=== PATIENT | male | born 1960 | race Caucasian/White ===

== ENCOUNTER 2019-05-04 18:10 | Emergency (ER) | payer MEDICAID ==
[2019-05-05 08:00] VITALS: BP 98/60
== END 2019-05-05 08:26 | disposition home or self-care (01) ==
LOC: ED 18:23
DX: F10.220 Alcohol dependence with intoxication, uncomplicated (principal); R41.82 Altered mental status, unspecified
CPT/HCPCS: 36415; 80053; 80307; 85025; 85610; 85730; 86850; 86900; 93005; 96360; 99284; J7030

== ENCOUNTER 2019-05-05 11:31 | Emergency (ER) | payer MEDICAID ==
[~2019-05-05] VITALS: Ht 185.4 cm; Wt 77.3 kg
--- NOTE | 2019-05-05 11:38 | NUR ---
BREAK RN: PT MELANIE PAYAN AFTER SOMEONE FOUND HIM ON [address] AT THE [employer] [facility]. "MY BODY FEELS LIKE IT'S GOING TO GIVE OUT, LIKE PARALYSIS WHEN I WALK. IT FEELS LIKE I'M GOING TO HAVE A HEART ATTACK. TOTAL SHORTNESS OF BREATH." PT WAS D/C'D FROM ER THIS AM. STATES HE DRANK A HALF A PINT OF VODKA AFTER BEING DISCHARGED. NADN. NO SOB NOTED. PT SPEAKING IN FULL SENTENCES WITHOUT TROUBLE. PT ASKS IF HIS DAUGHTER KNOWS WHERE HE IS. PT LAYING ON [employer]. CALL LIGHT IN REACH.
--- NOTE | 2019-05-05 11:48 | NUR ---
REPORT FROM JUAN LAKHANI AND JUAN SANTORO. ASSUMED CARE OF PATIENT AT THIS TIME.
[2019-05-05] MEDS ORDERED: POTASSIUM CHLORIDE 20 MEQ TAB.ER.PRT ONE (11:52)
[2019-05-05] MEDS ORDERED: POTASSIUM CHLORIDE 40 MEQ in SODIUM CHLORIDE 0.9% 500 ML IV ONE (12:00)
[2019-05-05] MEDS ORDERED: POTASSIUM CHLORIDE 20 MEQ TAB.ER.PRT PO ONE (12:00)
--- NOTE | 2019-05-05 12:04 | NUR ---
MEDICATION REQUEST SENT TO PHARMACY.
[2019-05-05 12:17] LABS: ALBUMIN 3.6 g/dL (3.4-5.0); ANION GAP 15 mmol/L (5-15); CALCIUM 7.5 mg/dL (8.5-10.1); CHLORIDE 98 mmol/L (98-107); CREATININE 1.02 mg/dL (0.7-1.3)
[2019-05-05 12:21] LABS: TROPONIN I < 0.015 ng/mL (0.000-0.045)
--- NOTE | 2019-05-05 12:43 | NUR ---
LAB RESULTS BACK, AWARE, PATIENT TO HAVE CTA FOR +D-DIMER, AWAITING CT. PATIENT LAYING IN [place]. UPDATED ON POC.
--- NOTE | 2019-05-05 13:20 | NUR ---
RECEIVED BEDSIDE REPORT FROM JUAN WEEKS
[2019-05-05] MEDS ORDERED: OMNIPAQUE 350 MG/ML, 100ML BOTTLE ONE (13:57)
--- NOTE | 2019-05-05 14:18 | NUR ---
PT GAVE PERMISSION TO SPEAK WITH HIS DAUGHTER INES
--- NOTE | 2019-05-05 14:23 | NUR ---
CALL DAUGHTER, INES, WHEN READY FOR D/C. [phone]
[2019-05-05 14:30] VITALS: BP 116/68
--- NOTE | 2019-05-05 14:54 | NUR ---
THIS RN SPOKE WITH DR. ROLO CABRAL TO D/C PATIENT WITH GETTING ONLY 1/2 BAG OF POTASSIUM. PATIENT ABLE TO AMBULAT. DAUGHTER, INES CALLED, TO COME COLLAR RUNNER PATIENT. PATIENT IV DC WITH TIP INTACT. PATIENT AOX4 NOTED WITH SLIGHT TREMORS.
== END 2019-05-05 15:45 | disposition home or self-care (01) ==
LOC: ED 13:57
DX: F10.229 Alcohol dependence with intoxication, unspecified (principal); E87.6 Hypokalemia; R06.00 Dyspnea, unspecified
CPT/HCPCS: 36415; 71045; 71275; 80048; 80307; 82040; 83735; 84484; 85379; 93005; 96365; 96366; 99284; J3480; J7040; Q9967

== ENCOUNTER 2019-05-06 18:28 | Emergency (ER) | payer MEDICAID ==
[~2019-05-06] VITALS: Ht 185.4 cm; Wt 72.7 kg
--- NOTE | 2019-05-06 18:45 | NUR ---
BIB [facility] AFTER DAUGHTER CALLED FROM HOME FOR BEING INTOXICATED. BROUGHT IN BY [facility] YESTERDAY. PT DRUNK, SLURRING WORDS. OBEYING COMMANDS AND RESPONDING TO VOICE. HAS A WET COUGH. TACHYCARDIC. AT BEDSIDE TO ASSESS PT.
--- NOTE | 2019-05-06 18:51 | NUR ---
YELLOW SLIP SENT TO PHARMACY FOR MEDS PER DEC.
[2019-05-06] MEDS ORDERED: ZIPRASIDONE 20 MG INJ IM ONE (19:00)
[2019-05-06] MEDS ORDERED: MAGNESIUM SULFATE 1 GM, THIAMINE 100 MG, FOLIC ACID 1 MG, MVI ADULT 10 ML in SODIUM CHL... IV ONE (19:00)
--- NOTE | 2019-05-06 19:00 | NUR ---
REPORT GIVEN TO LUKE GARVIN RN.
--- NOTE | 2019-05-06 19:02 | NUR ---
REPORT GIVEN TO VIRGIE
--- NOTE | 2019-05-06 19:17 | NUR ---
PT PULLED OUT IV PRIOR TO CT SCAN
--- NOTE | 2019-05-06 19:17 | NUR ---
PT TO CT SCAN
[2019-05-06 19:30] LABS: ALANINE AMINOTRANSFERASE 92 U/L (12-78); ANION GAP 13 mmol/L (5-15); BASOPHILS # (AUTO) 0.02 x10^3/uL (0-0.1); BASOPHILS % (AUTO) 1 % (0-1); CALCIUM 8.2 mg/dL (8.5-10.1); CHLORIDE 103 mmol/L (98-107); CREATININE 0.75 mg/dL (0.7-1.3); EOSINOPHILS # (AUTO) 0.03 x10^3/uL (0-0.4); EOSINOPHILS % (AUTO) 1 % (1-7); LYMPHOCYTES % (AUTO) 25 % (22-44); MEAN CORPUSCULAR HEMOGLOBIN 34.1 pg (27.5-34.5); MEAN CORPUSCULAR HGB CONC 33.5 g/dL (33.2-36.2); MEAN CORPUSCULAR VOLUME 102.1 fL (81-97); MEAN PLATELET VOLUME 9.2 fL (7.4-10.4); MONOCYTES # (AUTO) 0.65 x10^3/uL (0.2-0.8); MONOCYTES % (AUTO) 15 % (2-9); NEUTROPHILS # (AUTO) 2.55 x10^3/uL (1.8-6.8); NEUTROPHILS % (AUTO) 59 % (42-75); PLATELET COUNT 141 x10^3/uL (130-400); RED BLOOD COUNT 4.19 x10^6/uL (4.38-5.82); RED CELL DISTRIBUTION WIDTH 14.6 % (9.4-14.8)
[2019-05-06 19:31] LABS: MD NO
[2019-05-06 19:34] LABS: ALKALINE PHOSPHATASE 90 U/L (45-117); BILIRUBIN,TOTAL 0.8 mg/dL (0.2-1.0); TOTAL PROTEIN 6.9 g/dL (6.4-8.2)
--- NOTE | 2019-05-06 20:46 | NUR ---
PT ASLEEP VSS PLACED ON O2 WHEN O2 SATS DROPPED NOW AT 96%
--- NOTE | 2019-05-07 00:36 | NUR ---
DAUGHTER CALLED #[phone]. CALL FOR A TIDE WHEN DC TO HOME.
--- NOTE | 2019-05-07 02:20 | NUR ---
PT ASLEEP WITH VSS
[2019-05-07 02:21] VITALS: BP 123/72
--- NOTE | 2019-05-07 03:33 | NUR ---
PT AWATE WITH A POSITIVE ROAD TEST DAUGHTER IS ON HERE WAY TO [employer] F[employer].
== END 2019-05-07 04:05 ==
LOC: ED 20:11
DX: F10.220 Alcohol dependence with intoxication, uncomplicated (principal)
CPT/HCPCS: 36415; 70450; 71045; 80053; 80307; 85025; 93005; 96372; 96374; 99284; J3411; J3475; J3486; J7030

== ENCOUNTER 2019-05-11 21:31 | Emergency (ER) | payer MEDICAID ==
[~2019-05-11] VITALS: Ht 185.4 cm; Wt 68.1 kg
[2019-05-12 06:39] VITALS: BP 112/74
== END 2019-05-12 06:41 | disposition home or self-care (01) ==
LOC: ED 22:15
DX: F10.120 Alcohol abuse with intoxication, uncomplicated (principal); Y90.0 Blood alcohol level of less than 20 mg/100 ml; Z72.9 Problem related to lifestyle, unspecified
CPT/HCPCS: 36415; 80307; 99283